=== PATIENT | male | born 1995 | race Hispanic/Latino ===

== ENCOUNTER → 2022-10-26 | Emergency (ER) | payer OTHER ==
[~2022-10-26] VITALS: Ht 170.2 cm; Wt 64.0 kg
[2022-10-26 22:05] VITALS: BP 140/85; PULSE 98; RESP 24
== END ==
LOC: EDH 21:16
DX: F41.9 Anxiety disorder, unspecified (principal); Z53.21 Procedure and treatment not carried out due to patient leaving prior to being seen by health care provider
CPT/HCPCS: 93005; 99281